=== PATIENT | male | born 1935 | race Caucasian/White ===

== ENCOUNTER 2022-08-16 21:20 | Inpatient (IN) | payer MEDICARE, OTHER ==
[~2022-08-16] VITALS: Ht 172.7 cm; Wt 65.3 kg
[2022-08-16 21:00] VITALS: BP 127/85
[2022-08-16] MEDS ORDERED: LACT10SO3 PO (21:51)
[2022-08-16] MEDS ORDERED: FINA5TAB3 PO (21:51)
[2022-08-16] MEDS ORDERED: ACET-2154 PO (21:51)
[2022-08-16] MEDS ORDERED: ATOR10TA PO (21:51)
[2022-08-16] MEDS ORDERED: VALS80TA2 PO (21:51)
[2022-08-16] MEDS ORDERED: DRISDOL PO (21:54)
[2022-08-16] MEDS ORDERED: ACETAMINOPHEN 325 MG TABLET-SA PATIENTS-PAIN ONLY PO PRN (23:00)
--- NOTE | 2022-08-16 23:00 | NUR ---
Admitted to room 303; DR Trotter aware of admission; Dr Caceres aware as well and he put orders; safety measures done; care plan explained
[2022-08-17 04:00] VITALS: BP 132/66
[2022-08-17] MEDS ORDERED: ACETAMINOPHEN 325 MG TABLET PO PRN (07:30)
[2022-08-17 07:40] VITALS: BP 161/79
[2022-08-17] MEDS: FAMOTIDINE 20 MG TABLET PO SCH (08:08)
[2022-08-17] MEDS: FINASTERIDE 5 MG TABLET PO SCH (08:08)
[2022-08-17] MEDS: VALSARTAN 80 MG TABLET PO SCH (08:08)
[2022-08-17] MEDS: MULTIVITAMINS,THERAPEUTIC TABLET PO SCH (08:08)
[2022-08-17] MEDS: REMEDY ESSENTIAL ZINC PASTE 113 GM TOP SCH ×2 (09:00→20:17)
[2022-08-17] MEDS ORDERED: VALSARTAN 80 MG TABLET PO SCH (09:00)
[2022-08-17 11:29] VITALS: BP 161/78
[2022-08-17 16:20] VITALS: BP 135/74
--- NOTE | 2022-08-17 18:58 | NUR ---
Pt. is alert and oriented x4, and speaks Georgian. Pt. participates in occupational and physical therapy throughout the day. No acute distress noted. Pt. tolerates PO medications and ate food without difficulty. Pt. had 2 bowel movement throughout the shift. Pt. denies pain. At 1800, pt. family member noted scant bleeding on the pillow from occipital wound. Upon assessment, wound was no longer bleeding. Pt. states" "I think when I scratched my head, that may have caused it [the bleeding]." RN clean wound with normal saline, put on oil dressing, and applied dressing to the wound. Upon cleaning, no additional bleeding was noted. RN put in wound consult. Hourly rounding done. Fall precautions in place; bed lowest position and bed alarm in place. RN will endorse to Bus Matron, RN
[2022-08-17 20:00] VITALS: BP 113/62
[2022-08-17] MEDS: DOCUSATE SODIUM 100 MG CAPSULE PO SCH (20:17)
[2022-08-17] MEDS: ATORVASTATIN 10 MG TABLET PO SCH (20:17)
--- NOTE | 2022-08-18 04:16 | NUR ---
AAOx4 Watching TV upon initial rounds. VSS. Needs attended. All due meds given without difficulty. Denies any pain nor any discomfort. Patient incontinent of bowel and bladder. Kept clean and dry.Will monitor patient. Dressing intact to the occipital area, no bleeding noted. Fall precautions maintained. Siderails up for safety. Call colon within reach. Slept well most of the shift.
[2022-08-18 05:29] VITALS: BP 114/74
[2022-08-18 07:35] VITALS: BP 136/63
[2022-08-18] MEDS: VALSARTAN 80 MG TABLET PO SCH (08:15)
[2022-08-18] MEDS: FAMOTIDINE 20 MG TABLET PO SCH (08:15)
[2022-08-18] MEDS: MULTIVITAMINS,THERAPEUTIC TABLET PO SCH (08:15)
[2022-08-18] MEDS: FINASTERIDE 5 MG TABLET PO SCH (08:15)
[2022-08-18] MEDS: REMEDY ESSENTIAL ZINC PASTE 113 GM TOP SCH ×2 (08:16→20:23)
[2022-08-18] MEDS: ERGOCALCIFEROL 50,000 UNIT CAPSULE PO SCH (08:19)
[2022-08-18 15:08] VITALS: BP 140/71
--- NOTE | 2022-08-18 18:38 | NUR ---
Pt. is alert and oriented x4, and speaks Bhutanese. Pt. tolerates PO medications, and participates in physical and occupational therapy per plan. Pt. tolerates diet plan. Pt. made 2 bowel movements throughout the shift. RN added glasses, phonebook, and cell phone wheel mill operator to patient belongings. No acute distress noted. No additional bleeding from occipital wound on the head. Pt. denies pain. Hourly rounding done. SCD initiated on patient. Fall precautions in place; bed in lowest position & bed alarm on. All needs met at this time. With endorse to Test Boring Crew Chief, RN.
[2022-08-18 20:09] VITALS: BP 146/73
[2022-08-18] MEDS: DOCUSATE SODIUM 100 MG CAPSULE PO SCH (20:23)
[2022-08-18] MEDS: ATORVASTATIN 10 MG TABLET PO SCH (20:23)
[2022-08-19 04:48] VITALS: BP 127/69
--- NOTE | 2022-08-19 05:13 | NUR ---
Condition unchanged. AAOx3-4 forgetful at times. VSS No acute distress noted. Fall precautions maintained. Call colon within reach. Incontinent of bowel and bladder. BM noted this shift. Will monitor patient. Dressing to back of the head intact. No bleeding noted.
[2022-08-19] MEDS: FAMOTIDINE 20 MG TABLET PO SCH (08:16)
[2022-08-19] MEDS: MULTIVITAMINS,THERAPEUTIC TABLET PO SCH (08:16)
[2022-08-19] MEDS: FINASTERIDE 5 MG TABLET PO SCH (08:16)
[2022-08-19] MEDS: VALSARTAN 80 MG TABLET PO SCH (08:16)
[2022-08-19] MEDS: REMEDY ESSENTIAL ZINC PASTE 113 GM TOP SCH ×2 (08:17→21:38)
[2022-08-19] MEDS: MUPIROCIN 2% OINT 22 GM TUBE NS SCH ×2 (08:22→21:38)
[2022-08-19] MEDS: MIRALAX 17 GM POWD.PACK PO PRN (08:22)
[2022-08-19 10:39] VITALS: BP 113/61
[2022-08-19 12:09] VITALS: BP 111/66
[2022-08-19 12:25] VITALS: BP 111/66
--- NOTE | 2022-08-19 14:14 | NUR ---
INDIVIDUALIZED PLAN OF CARE
[2022-08-19 20:00] VITALS: BP 135/62
[2022-08-19] MEDS: DOCUSATE SODIUM 100 MG CAPSULE PO SCH (21:38)
[2022-08-19] MEDS: ATORVASTATIN 10 MG TABLET PO SCH (21:38)
[2022-08-20 04:00] VITALS: BP 168/85
--- NOTE | 2022-08-20 04:52 | NUR ---
SHIFT NOTE: RECEIVED PATIENT AT START OF SHIFT NO SIGNS OF RESPIRATORY DISTRESS NOTED. PT DENIES PAIN AND MEDICATION GIVEN ORDERED NO SIGNS OF ADVERSE REACTION FROM MEDICATION. WILL CONTINUE TO MONITOR FOR FALL AND SAFETY. WILL ENDORSE TO AM NURSE.
[2022-08-20] MEDS ORDERED: hydrALAZINE HCL 20 MG/1 ML VIAL IV PRN (06:00)
[2022-08-20 07:30] VITALS: BP 145/75
--- NOTE | 2022-08-20 07:53 | NUR ---
blood pressure 183/90 called SCOUT SNIPER Rosalio Vlilalobos gave apresoline 10mg iv endorse to am nurse.
--- NOTE | 2022-08-20 08:00 | NUR ---
confirmed with registery nurse about hydralazine IV, per registery nurse Sonia she has administered IV hydralazine to patient. continue to monitor
[2022-08-20] MEDS: MULTIVITAMINS,THERAPEUTIC TABLET PO SCH (08:22)
[2022-08-20] MEDS: FAMOTIDINE 20 MG TABLET PO SCH (08:22)
[2022-08-20] MEDS: FINASTERIDE 5 MG TABLET PO SCH (08:22)
[2022-08-20] MEDS: MUPIROCIN 2% OINT 22 GM TUBE NS SCH ×3 (08:23→22:10)
[2022-08-20] MEDS: VALSARTAN 80 MG TABLET PO SCH (08:23)
[2022-08-20] MEDS: REMEDY ESSENTIAL ZINC PASTE 113 GM TOP SCH ×2 (08:23→22:10)
[2022-08-20] MEDS: ENSURE ENLIVE (VAN) 240 ML LIQUID PO SCH (08:23)
[2022-08-20 10:30] VITALS: BP 128/62
--- NOTE | 2022-08-20 10:55 | NUR ---
patient was with physical therapist standing with fww with assist, physical therapist called nurse and reported that patient had rigid, and stiffness activity for 30 seconds, and while this signwriter was there noted another activity of same symptoms for another 30 seconds, patient brought back to bed. nurocheck performed, patient is alert, oriented x4, verbally responsive, no sob, respirations are even nonlabored,skin warm and dry to touch, PERRLA intact, ROM active to both upper and lower ext. able to squeeze hands symmetrically with full strength. BIENVENIDO Greer made aware, continue to monitor.
--- NOTE | 2022-08-20 14:26 | NUR ---
WOUND CARE CONSULT: PT OFF UNIT AT THIS TIME. WILL SEE PT PT CONDITION PERMITS.
[2022-08-20 15:46] VITALS: BP 129/73
--- NOTE | 2022-08-20 18:17 | NUR ---
patient is alert, oriented x4, no acute distress noted
[2022-08-20 20:00] VITALS: BP 132/70
[2022-08-20] MEDS: ATORVASTATIN 10 MG TABLET PO SCH (22:03)
[2022-08-20] MEDS: DOCUSATE SODIUM 100 MG CAPSULE PO SCH (22:03)
[2022-08-21 04:00] VITALS: BP 129/72
--- NOTE | 2022-08-21 06:49 | NUR ---
PATIENT STABLE NIH SCORE UNCHANGED.
[2022-08-21 07:30] VITALS: BP 134/68
[2022-08-21] MEDS: VALSARTAN 80 MG TABLET PO SCH (08:19)
[2022-08-21] MEDS: ENSURE ENLIVE (VAN) 240 ML LIQUID PO SCH (08:19)
[2022-08-21] MEDS: FINASTERIDE 5 MG TABLET PO SCH (08:21)
[2022-08-21] MEDS: MULTIVITAMINS,THERAPEUTIC TABLET PO SCH (08:21)
[2022-08-21] MEDS: REMEDY ESSENTIAL ZINC PASTE 113 GM TOP SCH ×2 (08:24→20:20)
[2022-08-21] MEDS: MUPIROCIN 2% OINT 22 GM TUBE NS SCH ×2 (08:25→20:20)
[2022-08-21] MEDS: FAMOTIDINE 20 MG TABLET PO SCH (08:26)
--- NOTE | 2022-08-21 12:56 | NUR ---
WOUND CARE CONSULT: PT PRESENTS VERY THIN WITH AREAS OF SKIN DISCOLORATION AND SCARRING/DISCOLORATION TO POSTERIOR HEAD. DISCUSSED SKIN PROTECTION WITH NURSING STAFF. MD IN AGREEMENT WITH PLAN OF CARE.
[2022-08-21 16:00] VITALS: BP 146/75
--- NOTE | 2022-08-21 18:07 | NUR ---
Pt. alert oriented x4 with episodes of forgetfulness. Ct Head result indicates no evidence of intracranial hemorrhage and midline shift. Wound consult came for pt's further evaluation. No order given. D/c midline of the left arm. Pt. comfortable and stable at this time.
[2022-08-21 20:00] VITALS: BP 142/73
[2022-08-21] MEDS: ATORVASTATIN 10 MG TABLET PO SCH (20:19)
[2022-08-21] MEDS: DOCUSATE SODIUM 100 MG CAPSULE PO SCH (20:19)
[2022-08-22 04:00] VITALS: BP 136/78
--- NOTE | 2022-08-22 04:38 | NUR ---
Quiet night AAOx3-4 with some periods of forgetfulness VSS. Took meds without difficulty. No complaints presented. Needs attended. Will monitor patient.
--- NOTE | 2022-08-22 07:58 | NUR ---
07:50-Rec'd patient in bed, awake, receiving an HHN respiratory tx and prabhakar well, no respiratory distress/SOB or use of accessory muscles noted. Skin W/D to the touch, afebrile. Patient verbally communicative, denies any pain/discomfort. Safety measures/call light at reach. Addendum: 08/22/22 at 0801 by LALITHA ALCARAZ RN Incorrect entry.
[2022-08-22 08:00] VITALS: BP 152/84
--- NOTE | 2022-08-22 08:01 | NUR ---
0720-Rec'd patient in bed, awake, alert and able to verbalize his needs, denies any pain, patient states to have slept well through the night. Patient newly adm 08/21/22 during fast food shift lead. Medication orders pending. Yesenia Juan and Dr. Sun aware, pending orders to finalize. Patient is in R/A, no respiratory distress noted; reorient to facility and surroundings, encouraged to use call light for help every time needed.
[2022-08-22] MEDS: MULTIVITAMINS,THERAPEUTIC TABLET PO SCH (08:33)
[2022-08-22] MEDS: FINASTERIDE 5 MG TABLET PO SCH (08:35)
[2022-08-22] MEDS: FAMOTIDINE 20 MG TABLET PO SCH (08:35)
[2022-08-22] MEDS: VALSARTAN 80 MG TABLET PO SCH (08:35)
[2022-08-22] MEDS: REMEDY ESSENTIAL ZINC PASTE 113 GM TOP SCH ×2 (08:37→20:07)
[2022-08-22] MEDS: MUPIROCIN 2% OINT 22 GM TUBE NS SCH ×2 (08:40→20:06)
[2022-08-22] MEDS: ENSURE ENLIVE (VAN) 240 ML LIQUID PO SCH (09:21)
--- NOTE | 2022-08-22 10:50 | NUR ---
INTERDISCIPLINARY TEAM CONFERENCE
[2022-08-22 16:00] VITALS: BP 110/60
[2022-08-22] MEDS: DOCUSATE SODIUM 100 MG CAPSULE PO SCH (20:04)
[2022-08-22] MEDS: ATORVASTATIN 10 MG TABLET PO SCH (20:04)
[2022-08-22 20:08] VITALS: BP 117/65
[2022-08-23 04:00] VITALS: BP 125/71
--- NOTE | 2022-08-23 04:48 | NUR ---
Quiet night. AAOx3-4 but forgetful at times. Needs attended. VSS No complaints prresented during the shift. Kept comfortable. Bilateral heels reddenned. Fall precautions maintained. Full code noted..
[2022-08-23 07:34] VITALS: BP 130/70
[2022-08-23] MEDS: REMEDY ESSENTIAL ZINC PASTE 113 GM TOP SCH ×2 (09:04→20:19)
[2022-08-23] MEDS: VALSARTAN 80 MG TABLET PO SCH (09:04)
[2022-08-23] MEDS: FAMOTIDINE 20 MG TABLET PO SCH (09:04)
[2022-08-23] MEDS: MULTIVITAMINS,THERAPEUTIC TABLET PO SCH (09:04)
[2022-08-23] MEDS: FINASTERIDE 5 MG TABLET PO SCH (09:04)
[2022-08-23] MEDS: MUPIROCIN 2% OINT 22 GM TUBE NS SCH ×2 (09:06→20:19)
[2022-08-23] MEDS: ENSURE ENLIVE (VAN) 240 ML LIQUID PO SCH (09:07)
[2022-08-23] MEDS: MIRALAX 17 GM POWD.PACK PO PRN (09:33)
[2022-08-23 15:10] VITALS: BP 128/70
--- NOTE | 2022-08-23 17:23 | NUR ---
Patient alert and oriented, able verbalize his needs and follow directions. Patient stayed in his room lying on his bed and at times OOB on sitting on W/C, patient requires of one person assist for transfers, personal care/hygiene. Watched TV during shift, tolerated oral intake well. Patient compliant with his care and nursing staff. Due medications administered as scheduled/ordered by MD. Patient free of pain during shift. Continues under rehab for PT/OT skilled services, patient able to actively participate in therapy. Fall precautions observed; safety precaution reminders provided and encouraged to use call light for help every time needed. Assisted with ADLS, routine rounds/frequent visual checks done to ensure safety. No changes in medical condition noted. No NATALIE or LOC, VSS and logged accordingly. Patient rec'd a shower by rehab dept. this morning/today. Back of head scabs still present, no s/s of infection/bleeding/drainage. Handled gently and carefully during care. Assisted patient to the restroom as needed. All needs anticipated and met. No unusual findings or events during shift.
[2022-08-23 20:00] VITALS: BP 124/69
[2022-08-23] MEDS: ATORVASTATIN 10 MG TABLET PO SCH (20:17)
[2022-08-23] MEDS: DOCUSATE SODIUM 100 MG CAPSULE PO SCH (20:17)
[2022-08-24 04:00] VITALS: BP 120/61
--- NOTE | 2022-08-24 05:24 | NUR ---
Slept well most of the shift. VSS No acute distress noted. Incontinent of bowel and bladder.Kept clean and dry. BM this shift. Tolerated po meds well. No complaints presented during shift.
[2022-08-24 07:29] VITALS: BP 141/70
[2022-08-24] MEDS: FINASTERIDE 5 MG TABLET PO SCH (10:34)
[2022-08-24] MEDS: FAMOTIDINE 20 MG TABLET PO SCH (10:34)
[2022-08-24] MEDS: MULTIVITAMINS,THERAPEUTIC TABLET PO SCH (10:34)
[2022-08-24] MEDS: MUPIROCIN 2% OINT 22 GM TUBE NS SCH ×2 (10:35→21:00)
[2022-08-24] MEDS: VALSARTAN 80 MG TABLET PO SCH (10:35)
[2022-08-24] MEDS: ENSURE ENLIVE (VAN) 240 ML LIQUID PO SCH (10:35)
[2022-08-24] MEDS: REMEDY ESSENTIAL ZINC PASTE 113 GM TOP SCH ×2 (10:36→20:59)
[2022-08-24 15:00] VITALS: BP 141/60
[2022-08-24 20:00] VITALS: BP 124/77
[2022-08-24] MEDS: DOCUSATE SODIUM 100 MG CAPSULE PO SCH (20:58)
[2022-08-24] MEDS: ATORVASTATIN 10 MG TABLET PO SCH (20:58)
[2022-08-25 03:50] VITALS: BP 144/62
--- NOTE | 2022-08-25 07:11 | NUR ---
PT SLEPT WELL INCONTINENT CARE DONE.
[2022-08-25 07:37] VITALS: BP 154/66
[2022-08-25] MEDS: MUPIROCIN 2% OINT 22 GM TUBE NS SCH ×2 (08:40→20:40)
[2022-08-25] MEDS: FINASTERIDE 5 MG TABLET PO SCH (08:40)
[2022-08-25] MEDS: FAMOTIDINE 20 MG TABLET PO SCH (08:41)
[2022-08-25] MEDS: VALSARTAN 80 MG TABLET PO SCH (08:41)
[2022-08-25] MEDS: REMEDY ESSENTIAL ZINC PASTE 113 GM TOP SCH ×2 (08:41→20:40)
[2022-08-25] MEDS: MULTIVITAMINS,THERAPEUTIC TABLET PO SCH (08:41)
[2022-08-25] MEDS: ERGOCALCIFEROL 50,000 UNIT CAPSULE PO SCH (08:44)
[2022-08-25] MEDS: ENSURE ENLIVE (VAN) 240 ML LIQUID PO SCH (08:53)
[2022-08-25 15:51] VITALS: BP 134/72
--- NOTE | 2022-08-25 18:22 | NUR ---
Received report from DYLAN Sarabia. Patient is alert and oriented x4 and able to speak Sinhala. Participates in physical and occupational therapy per schedule. Tolerates PO medications and cardiac diet well. Voids adequately and had 1 bowel movement. No acute distress noted. Patient denies pain. Hourly rounding completed. Fall precautions in place; bed in lowest position and bed alarm on.
[2022-08-25 20:00] VITALS: BP 124/73
[2022-08-25] MEDS: ATORVASTATIN 10 MG TABLET PO SCH (20:41)
[2022-08-25] MEDS: DOCUSATE SODIUM 100 MG CAPSULE PO SCH (20:41)
[2022-08-26 04:00] VITALS: BP 155/68
[2022-08-26 08:00] VITALS: BP 152/69
[2022-08-26] MEDS: VALSARTAN 80 MG TABLET PO SCH ×2 (09:00→09:26)
[2022-08-26] MEDS: MULTIVITAMINS,THERAPEUTIC TABLET PO SCH (09:26)
[2022-08-26] MEDS: FAMOTIDINE 20 MG TABLET PO SCH (09:26)
[2022-08-26] MEDS: FINASTERIDE 5 MG TABLET PO SCH (09:26)
[2022-08-26] MEDS: ENSURE ENLIVE (VAN) 240 ML LIQUID PO SCH (09:27)
[2022-08-26] MEDS: REMEDY ESSENTIAL ZINC PASTE 113 GM TOP SCH ×2 (09:27→20:56)
[2022-08-26 13:29] VITALS: BP_SYST 102; BP_SYST 81; BP_SYST 92; BP_DIAS 50; BP_DIAS 53; BP_DIAS 59
[2022-08-26] MEDS: IV NS 1000 ML 1,000 ML IV SCH (15:10)
[2022-08-26 16:49] VITALS: BP 150/77
[2022-08-26 20:45] VITALS: BP 120/65
[2022-08-26] MEDS: ATORVASTATIN 10 MG TABLET PO SCH (20:53)
[2022-08-26] MEDS: DOCUSATE SODIUM 100 MG CAPSULE PO SCH (20:56)
[2022-08-27] VITALS: BP 136/70
[2022-08-27] MEDS: IV NS 1000 ML 1,000 ML IV SCH ×2 (03:50→06:07)
[2022-08-27 04:00] VITALS: BP 157/73
[2022-08-27 07:40] VITALS: BP 171/75
[2022-08-27] MEDS: FAMOTIDINE 20 MG TABLET PO SCH (09:00)
[2022-08-27] MEDS: ENSURE ENLIVE (VAN) 240 ML LIQUID PO SCH (09:00)
[2022-08-27] MEDS: VALSARTAN 80 MG TABLET PO SCH (09:00)
[2022-08-27] MEDS: REMEDY ESSENTIAL ZINC PASTE 113 GM TOP SCH ×2 (09:00→20:23)
[2022-08-27] MEDS: FINASTERIDE 5 MG TABLET PO SCH (10:12)
[2022-08-27] MEDS: MULTIVITAMINS,THERAPEUTIC TABLET PO SCH (10:12)
--- NOTE | 2022-08-27 10:53 | NUR ---
PATIENT C/O PAIN TO R ARM. ASSESSED BY POWER SWEEPER OPERATOR, REDNESS NOTED. TYLENOL ADMIN. GUARDING NOTED. REPORTED TO DR. HARRISON Myers NEW ORDER TO D/C CURRENT MIDLINE AND START AND NEW MIDLINE. REPORTED TO CRISIS CLINICIAN. Fior CERVANTES RN
[2022-08-27] MEDS ORDERED: MECLIZINE HCL 12.5 MG TABLET PO PRN (15:15)
[2022-08-27 15:51] VITALS: BP 143/65
[2022-08-27 20:00] VITALS: BP 150/69
[2022-08-27] MEDS: ATORVASTATIN 10 MG TABLET PO SCH (20:22)
[2022-08-27] MEDS: DOCUSATE SODIUM 100 MG CAPSULE PO SCH (20:23)
[2022-08-28 04:00] VITALS: BP 138/83
[2022-08-28 07:38] VITALS: BP 147/58
[2022-08-28] MEDS: ENSURE ENLIVE (VAN) 240 ML LIQUID PO SCH (09:00)
[2022-08-28] MEDS: REMEDY ESSENTIAL ZINC PASTE 113 GM TOP SCH ×2 (09:00→20:45)
[2022-08-28] MEDS: FINASTERIDE 5 MG TABLET PO SCH (11:24)
[2022-08-28] MEDS: FAMOTIDINE 20 MG TABLET PO SCH (11:24)
[2022-08-28] MEDS: MULTIVITAMINS,THERAPEUTIC TABLET PO SCH (11:24)
[2022-08-28] MEDS: VALSARTAN 80 MG TABLET PO SCH (11:25)
[2022-08-28 15:09] VITALS: BP 141/54
[2022-08-28 20:00] VITALS: BP 115/62
[2022-08-28] MEDS: ATORVASTATIN 10 MG TABLET PO SCH (20:44)
[2022-08-28] MEDS: DOCUSATE SODIUM 100 MG CAPSULE PO SCH (20:44)
[2022-08-29 04:00] VITALS: BP 141/64
--- NOTE | 2022-08-29 04:09 | NUR ---
Admitted occipital fracture, alert, orient x3~4, No IV line, Incontinent of BM and bladder, tolerated medication this shift, VS stable, Skin intact, No complained during the shift, fall precaution maintain, side rails up for safety.
[2022-08-29 07:50] VITALS: BP 143/80
[2022-08-29] MEDS: FAMOTIDINE 20 MG TABLET PO SCH (09:01)
[2022-08-29] MEDS: FINASTERIDE 5 MG TABLET PO SCH (09:01)
[2022-08-29] MEDS: MULTIVITAMINS,THERAPEUTIC TABLET PO SCH (09:01)
[2022-08-29] MEDS: ENSURE ENLIVE (VAN) 240 ML LIQUID PO SCH (09:02)
[2022-08-29] MEDS: REMEDY ESSENTIAL ZINC PASTE 113 GM TOP SCH ×2 (09:02→20:52)
[2022-08-29] MEDS: VALSARTAN 80 MG TABLET PO SCH (09:03)
--- NOTE | 2022-08-29 13:54 | NUR ---
INTERDISCIPLINARY TEAM CONFERENCE
[2022-08-29 15:50] VITALS: BP 140/76
--- NOTE | 2022-08-29 17:10 | NUR ---
BP 88/43 REPORTED TO MD. NO NEW ORDERS AT THIS TIME. LISANDRO Toro RN
[2022-08-29 20:00] VITALS: BP 131/68
[2022-08-29] MEDS: ATORVASTATIN 10 MG TABLET PO SCH (20:51)
[2022-08-29] MEDS: DOCUSATE SODIUM 100 MG CAPSULE PO SCH (20:51)
[2022-08-29] MEDS: MIDODRINE HCL 5 MG TABLET PO SCH (20:51)
[2022-08-30 04:00] VITALS: BP 142/68
--- NOTE | 2022-08-30 06:36 | NUR ---
Shift End Report: Vs stable. Slept good. Some confusion noted. Uncooperative and very resistive to care. All needs attended and met. No significant event reported all night. Addendum: 08/30/22 at 0640 by JANNIE EDWARDS RN wrong patient.
--- NOTE | 2022-08-30 06:40 | NUR ---
Shift End Report: Slept good. No significant event reported all night. All needs attended and met. VS stable.
[2022-08-30 06:59] LABS: HEMATOCRIT 34.3 % (36.7-47.1); MEAN CORPUSCULAR HEMOGLOBIN 30.3 uug (23.8-33.4); PLATELET COUNT (AUTO) 281 K/uL (152-348)
[2022-08-30 07:22] LABS: THYROID STIMULATING HORMONE 3.55 mIU/mL (0.358-3.740)
[2022-08-30 07:34] VITALS: BP 147/66
[2022-08-30 07:45] LABS: BILIRUBIN,TOTAL 0.4 mg/dL (0.2-1.0); MAGNESIUM 1.9 mg/dL (1.8-2.4); POTASSIUM 4.3 mmol/L (3.5-5.1); TOTAL PROTEIN, SERUM 6.5 g/dL (6.4-8.2)
[2022-08-30] MEDS: FINASTERIDE 5 MG TABLET PO SCH (08:38)
[2022-08-30] MEDS: FAMOTIDINE 20 MG TABLET PO SCH (08:39)
[2022-08-30] MEDS: MULTIVITAMINS,THERAPEUTIC TABLET PO SCH (08:39)
[2022-08-30] MEDS: VALSARTAN 80 MG TABLET PO SCH (08:39)
[2022-08-30] MEDS: ENSURE ENLIVE (VAN) 240 ML LIQUID PO SCH (08:40)
[2022-08-30] MEDS: REMEDY ESSENTIAL ZINC PASTE 113 GM TOP SCH ×2 (08:41→20:27)
[2022-08-30] MEDS: MIDODRINE HCL 5 MG TABLET PO SCH ×2 (09:00→09:31)
[2022-08-30 15:51] VITALS: BP 119/64
--- NOTE | 2022-08-30 17:17 | NUR ---
Patient, alert and oriented, OOB during shift. Patient continues to rec'd PT/OT skilled services as ordered, able to actively participate in therapy, denies pain or discomfort. Patient requires of one person assist with transfers. Fall precautions observed. Eating and drinking fairly. Patient within usual baseline, no changes noted. All needs anticipated and met.
[2022-08-30 20:00] VITALS: BP 115/61
[2022-08-30] MEDS: DOCUSATE SODIUM 100 MG CAPSULE PO SCH (20:26)
[2022-08-30] MEDS: ATORVASTATIN 10 MG TABLET PO SCH (20:27)
[2022-08-30] MEDS ORDERED: PIPERACILLIN SODIUM/TAZO 3.375 GM VIAL ONE (23:39)
[2022-08-30] MEDS: PIPERACILLIN SODIUM/TAZOBACTAM 3.375 G in IV DEXTROSE 5% 50 ML IV SCH (23:51)
[2022-08-31 04:00] VITALS: BP 125/66
[2022-08-31] MEDS: PIPERACILLIN SODIUM/TAZOBACTAM 3.375 G in IV DEXTROSE 5% 50 ML IV SCH (05:23)
--- NOTE | 2022-08-31 05:26 | NUR ---
Shift End Report: Started on Zosyn IV antibiotic as ordered for PNA. No s/s of adverse reaction noted. Will continue to monitor.
[2022-08-31 07:28] VITALS: BP 157/73
[2022-08-31] MEDS: MULTIVITAMINS,THERAPEUTIC TABLET PO SCH (08:23)
[2022-08-31] MEDS: FINASTERIDE 5 MG TABLET PO SCH (08:23)
[2022-08-31] MEDS: VALSARTAN 80 MG TABLET PO SCH (08:24)
[2022-08-31] MEDS: FAMOTIDINE 20 MG TABLET PO SCH (08:24)
[2022-08-31] MEDS: MIDODRINE HCL 5 MG TABLET PO SCH ×2 (08:25→21:03)
[2022-08-31] MEDS: ENSURE ENLIVE (VAN) 240 ML LIQUID PO SCH (08:25)
[2022-08-31] MEDS: REMEDY ESSENTIAL ZINC PASTE 113 GM TOP SCH ×2 (08:26→21:05)
--- NOTE | 2022-08-31 10:54 | NUR ---
Patient found in bed awake. He is Farsi speaking but speaks Kyrgyz well. Patient is alert and oriented x4, very pleasant and cooperative. He came from [place] with history of dizziness and headache/ s/p ground level fall. Pain denied when asked. Normal air movement with no apparent distress noted. Patient is full code with no known allergies and on cardiac diet. Patient is mostly incont. Last BM yesterday 08/30/22. Patient was not able to walk with PT. Orthostatic vitals done today: Supine 123/66/ 73, Sitting 115/64 8, Standing 77/[address] Caceres made aware. Covid antigen taken today to lab. Patient is comfortably resting in bed. Sn will continue to monitor.
[2022-08-31] MEDS ORDERED: PIPERACILLIN SODIUM/TAZOBACTAM 3.375 G in IV DEXTROSE 5% 50 ML IV SCH (14:00)
[2022-08-31] MEDS: PIPERACILLIN SODIUM/TAZOBACTAM 3.375 G in IV DEXTROSE 5% 100 ML IV SCH ×2 (14:50→21:08)
--- NOTE | 2022-08-31 15:19 | NUR ---
Stool collected and sent to lab for occult blood. Patient currently comfortable. Will continue to monitor.
[2022-08-31 17:28] LABS: *OCCULT BLOOD STOOL NEGATIVE (NEGATIVE)
[2022-08-31 19:47] VITALS: BP 113/57
[2022-08-31] MEDS: ATORVASTATIN 10 MG TABLET PO SCH (21:01)
[2022-08-31] MEDS: DOCUSATE SODIUM 100 MG CAPSULE PO SCH (21:01)
[2022-09-01 04:00] VITALS: BP 161/85
[2022-09-01 04:45] VITALS: BP 161/85
[2022-09-01] MEDS: PIPERACILLIN SODIUM/TAZOBACTAM 3.375 G in IV DEXTROSE 5% 100 ML IV SCH ×2 (06:41→14:25)
[2022-09-01 07:33] VITALS: BP 139/67
[2022-09-01] MEDS: FINASTERIDE 5 MG TABLET PO SCH (08:47)
[2022-09-01] MEDS: VALSARTAN 80 MG TABLET PO SCH (08:48)
[2022-09-01] MEDS: FAMOTIDINE 20 MG TABLET PO SCH (08:48)
[2022-09-01] MEDS: ENSURE ENLIVE (VAN) 240 ML LIQUID PO SCH (08:48)
[2022-09-01] MEDS: MULTIVITAMINS,THERAPEUTIC TABLET PO SCH (08:48)
[2022-09-01 08:49] VITALS: BP 139/67
[2022-09-01] MEDS: MIDODRINE HCL 5 MG TABLET PO SCH (08:49)
[2022-09-01] MEDS: REMEDY ESSENTIAL ZINC PASTE 113 GM TOP SCH (08:49)
[2022-09-01] MEDS: ERGOCALCIFEROL 50,000 UNIT CAPSULE PO SCH (08:51)
--- NOTE | 2022-09-01 15:19 | NUR ---
patient discharged home, patient is alert, oriented x4, no acute distress noted, left message to daughter to call us back to let her know about medications. patient has to take po antibiotic for 3 days, prescription given Addendum: 09/01/22 at 1537 by MINA BARKLEY RN, RN ID removed and IV removed, discharge instructions given to patient and patient verbalized understanding of it. no skin issues noted, patient refused to take discharge pictures, however no skin issues noted. sacral is intact. no groin area redness noted. Addendum: 09/01/22 at 1538 by MINA BARKLEY RN RN belongings are accounted, signed, and sent with patient.
[2022-09-01] MEDS ORDERED: AMOXICILLIN-CLAVUL 875-125MG TABLET PO SCH (21:00)
== END 2022-09-01 15:30 | disposition home or self-care (01) | DRG 949 ==
PROVIDERS: ADMIT Physical Medicine & Rehabilitation Pain Medicine; ATTEND Physical Medicine & Rehabilitation Pain Medicine
PROC: 05HC33Z Insertion of Infusion Device into Left Basilic Vein, Percutaneous Approach (ICD-10-PCS; principal; 2022-08-26)
DX: S06.6XAD Traumatic subarachnoid hemorrhage with loss of consciousness status unknown, subsequent encounter (principal); E87.1 Hypo-osmolality and hyponatremia; G81.94 Hemiplegia, unspecified affecting left nondominant side; F07.81 Postconcussional syndrome; S02.119D Unspecified fracture of occiput, subsequent encounter for fracture with routine healing; I95.1 Orthostatic hypotension; W18.30XD Fall on same level, unspecified, subsequent encounter; E78.5 Hyperlipidemia, unspecified; G93.89 Other specified disorders of brain; N40.0 Benign prostatic hyperplasia without lower urinary tract symptoms; I69.398 Other sequelae of cerebral infarction; I10 Essential (primary) hypertension; S06.5XAD Traumatic subdural hemorrhage with loss of consciousness status unknown, subsequent encounter
CPT/HCPCS: 36415; 70450; 71045; 83550; 83735; 84100; 84443; 85025; 93005; 93307; 97535-GO-CO; A4663; J0360; J2543; J7040